=== PATIENT | male | born 1955 | race Caucasian/White ===

== ENCOUNTER → 2022-11-01 09:28 | Outpatient (BNVA) | payer MEDICARE, SELFPAY | PROVIDERS: PCP Family Medicine; Visit Provider Nurse Practitioner Family | DX: Z20.822 Contact with and (suspected) exposure to COVID-19 (principal) | CPT/HCPCS: 87426 ==

== ENCOUNTER → 2023-01-17 12:02 | Outpatient (BNVA) | payer MEDICARE, SELFPAY | PROVIDERS: PCP Family Medicine; Visit Provider Family Medicine | DX: I10 Essential (primary) hypertension (principal); E11.9 Type 2 diabetes mellitus without complications; R35.1 Nocturia; Z79.4 Long term (current) use of insulin | CPT/HCPCS: 80053; 80061; 82043; 83036; 84153; 85025 ==

== ENCOUNTER → 2023-01-27 09:20 | Outpatient (BNVA) | payer MEDICARE, SELFPAY | PROVIDERS: PCP Family Medicine; Visit Provider Family Medicine | DX: I10 Essential (primary) hypertension (principal) | CPT/HCPCS: 85025 ==

== ENCOUNTER 2023-02-06 10:10 | Outpatient (CLI) | payer MEDICARE, SELFPAY ==
[2023-02-06 11:26] LABS: Urine Total Protein 68.4 mg/dL (0-150)
[2023-02-06 11:59] LABS: Total Volume, Urine 2100 mL; Urine Total Protein 24 Hour 1436.4 mg/24hr (0-150)
[2023-02-06 12:00] LABS: Microalbumin 24 Hour Result 924 mg/24HR (0-30); Microalbumin Total Volume 2100 mL
== END 2023-02-06 10:11 | disposition home or self-care (01) ==
LOC: LAB 10:11
PROVIDERS: PCP Family Medicine; Visit Provider Family Medicine
DX: E11.29 Type 2 diabetes mellitus with other diabetic kidney complication (principal); R80.9 Proteinuria, unspecified
CPT/HCPCS: 82043; 84156

== ENCOUNTER 2023-03-28 07:47 | Outpatient (CLI) | payer MEDICARE, SELFPAY ==
--- NOTE | 2023-03-28 08:00 | US_ITS ---
WS: [id number] RENAL ULTRASOUND HISTORY: Proteinuria d/t diabetes COMPARISON: None available. TECHNIQUE: 2-D and color Doppler imaging of the kidney submitted. Right kidney: 10.9 cm x 6.1 cm x 4.3 cm. Cortex: 1.4 cm Normal echogenicity with no hydronephrosis or mass. Left kidney: 11.4 cm x 5.8 cm x 3.9 cm. Cortex: 1.6 cm Normal echogenicity with no hydronephrosis or mass. Aorta: Normal. Urinary Bladder: Normal distention. IMPRESSION: Normal renal ultrasound.
== END 2023-03-28 07:48 | disposition home or self-care (01) ==
LOC: RAD 07:47
PROVIDERS: PCP Family Medicine; Visit Provider Family Medicine
DX: E11.29 Type 2 diabetes mellitus with other diabetic kidney complication (principal); R80.9 Proteinuria, unspecified; Z12.11 Encounter for screening for malignant neoplasm of colon; Z80.0 Family history of malignant neoplasm of digestive organs
CPT/HCPCS: 76770; 99203

== ENCOUNTER → 2023-04-13 11:29 | Outpatient (BNVA) | payer MEDICARE, SELFPAY | PROVIDERS: PCP Family Medicine; Visit Provider Family Medicine | DX: E11.29 Type 2 diabetes mellitus with other diabetic kidney complication (principal); R80.9 Proteinuria, unspecified; Z79.4 Long term (current) use of insulin | CPT/HCPCS: 80053; 83036 ==

== ENCOUNTER → 2023-10-18 15:07 | Outpatient (BNVA) | payer MEDICARE, SELFPAY | PROVIDERS: PCP Family Medicine; Visit Provider Surgery | DX: Z09 Encounter for follow-up examination after completed treatment for conditions other than malignant neoplasm (principal) | CPT/HCPCS: 99212 ==

== ENCOUNTER → 2023-12-15 14:25 | Outpatient (BNVA) | payer MEDICARE, SELFPAY | PROVIDERS: PCP Family Medicine; Visit Provider Family Medicine | DX: I10 Essential (primary) hypertension (principal); R80.9 Proteinuria, unspecified; E11.29 Type 2 diabetes mellitus with other diabetic kidney complication; E78.2 Mixed hyperlipidemia; I25.10 Atherosclerotic heart disease of native coronary artery without angina pectoris; F41.1 Generalized anxiety disorder; K21.9 Gastro-esophageal reflux disease without esophagitis; E66.01 Morbid (severe) obesity due to excess calories; Z68.41 Body mass index [BMI] 40.0-44.9, adult; Z79.4 Long term (current) use of insulin | CPT/HCPCS: 80053; 82607; 83036; 84443; 85025 ==

== ENCOUNTER 2024-05-27 09:52 | Outpatient (CLI) | payer MEDICARE, SELFPAY ==
[2024-05-27 10:38] LABS: Estmated Average Glucose 160; Hemoglobin A1C 7.2 % (4.0-6.0)
[2024-05-27 10:47] LABS: Anion Gap 15.7 (5-19); Blood Urea Nitrogen 11 mg/dL (8-23); Calcium 7.7 mg/dL (8.5-10.5); Carbon Dioxide 26 mmol/L (22-29); Chloride 95 mmol/L (98-107); Glomerular Filtration Rate 60.4 mL/min (90-130); Glucose 192 mg/dL (65-115); Osmolality Calculated 281 mOsm/kg (285-295); Potassium 3.7 mmol/L (3.5-5.1); Sodium 133 mmol/L (136-145)
== END 2024-05-27 09:53 | disposition home or self-care (01) ==
LOC: LAB 09:53
PROVIDERS: PCP Family Medicine; Visit Provider Family Medicine
DX: E11.29 Type 2 diabetes mellitus with other diabetic kidney complication (principal); R80.9 Proteinuria, unspecified; Z79.4 Long term (current) use of insulin; I10 Essential (primary) hypertension; D33.3 Benign neoplasm of cranial nerves
CPT/HCPCS: 36415; 80048; 82043; 83036

== ENCOUNTER → 2024-06-14 09:44 | Outpatient (BNVA) | payer MEDICARE, SELFPAY | PROVIDERS: PCP Family Medicine; Visit Provider Family Medicine | DX: Z12.5 Encounter for screening for malignant neoplasm of prostate (principal); E11.9 Type 2 diabetes mellitus without complications; E78.2 Mixed hyperlipidemia | CPT/HCPCS: 80061; G0103 ==

== ENCOUNTER 2024-07-31 18:57 | Emergency (ER) | payer MEDICARE, SELFPAY ==
[2024-07-31] VITALS (7 sets, daily range): BP systolic 96–124; BP diastolic 50–61; PULSE 60–71; RESP 16; TEMP 36.4; O2SAT 95–100; BMI 41.6
--- NOTE | 2024-07-31 19:07 | XRR_ITS ---
PROCEDURE INFORMATION: Exam: XR Chest Exam date and time: 07/31/2024 7:22 PM Age: 69 years old Clinical indication: Other: Weakness TECHNIQUE: Imaging protocol: Radiologic exam of the chest. Views: 1 view. COMPARISON: CR XR chest 2V* [id number] 05/09/2021 7:46 PM FINDINGS: Lungs: Unremarkable. No consolidation. Pleural spaces: Unremarkable. No pleural effusion. No pneumothorax. Heart/Mediastinum: Unremarkable. No cardiomegaly. Bones/joints: Unremarkable. XR/XR chest 1V portable [id number] IMPRESSION: No acute findings.
--- NOTE | 2024-07-31 19:09 | ED_ITS ---
HPI - Weakness 2 General: Chief complaint: Weakness Stated complaint: WEAKNESS Time Seen by Provider: 07/31/24 18:59 Source: patient and EMS Mode of arrival: EMS Limitations: no limitations History of Present Illness: 69-year-old male who states that has bee n having generalized weakness over the last 2 days he states that he is in a house was extremely warm 2 days ago and felt like he got overheated he states since then he has felt dehydrated had body aches had some diarrhea and just feels generally weak. Denies any vomiting denies any fevers denies cough. 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 Mayes Erectile dysfunction KARMEN (generalized anxiety disorder) Old PA (myocardial infarction) 2007 CHF (congestive heart failure) Benign essential HTN Diabetic polyneuropathy associated with type 2 diabetes mellitus Surgical History S/P colonoscopy with polypectomy High-grade dysplastic polyp or malignancy removed by Dr. Mayes on 09/07/2023. Hx of colonoscopy 15-16 years ago - [facility] Previous back surgery x 4 History of arthroscopic knee surgery Right History of cataract extraction bilateral Family History Father Pancreatic cancer Mother Colon cancer Brother Heart disease Social History Smoking and tobacco/nicotine status: never used tobacco/nicotine Second hand smoke exposure: Yes Alcohol intake: former Substance/Drug Use: never Lives independently: Yes Household members: spouse and family Housing: House Marital status: Marital status details: ; 3 grandchildren live with them-plan to adopt Number of children: 6 Highest education level completed: Some College, No Degree service: Yes status: Discharged branch: [employer] Current occupational status: retired and disabled Previous occupational history: laborer/grade check [employer] 2 Vital Signs: Vital signs: Vital Signs Temperature 97.5 F L 07/31/24 18:58 Pulse Rate 68 07/31/24 18:58 Respiratory Rate 16 07/31/24 18:58 Blood Pressure 96/57 07/31/24 18:58 Pulse Oximetry 97 07/31/24 18:58 Oxygen Delivery Me thod Room Air 07/31/24 18:58 MDM - Weakness Medical Decision Making Patient presents here with generalized weakness some dehydration well-appearing here stable for discharge follow-up PCP return if worsening. Medical Records I reviewed the patient's medical records. Lab Data I reviewed the patient's lab results. 07/31/24 19:20 07/31/24 19:20 Radiology Impressions Chest X-Ray 07/31/24 19:07 IMPRESSION: No acute findings. Laboratory Results WBC 7.11 10^3/uL (3.29-11.43) 07/31/24 19:20 RBC 4.78 10^6/uL (3.85-5.65) 07/31/24 19:20 Hgb 12.40 g/dL (11.27-16.99) 07/31/24 19:20 Hct 38.4 % (37-53) 07/31/24 19:20 MCV 80.3 fl (82-101) L 07/31/24 19:20 MCH 25.9 pg (27-33) L 07/31/24 19:20 MCHC 32.3 g/dL (30-55) 07/31/24 19:20 RDW 14.7 % (12.1-15.1) 07/31/24 19:20 Plt Count 370 10^3/cmm (157-399) 07/31/24 19:20 MPV 9.8 fL (7.4-10.4) 07/31/24 19:20 Neut % (Auto) 65.7 % 07/31/24 19:20 Lymph % (Auto) 18.1 % 07/31/24 19:20 [place] % (Auto) 12.5 % 07/31/24 19:20 Eos % (Auto) 3.0 % 07/31/24 19:20 Baso % (Auto) 0.3 % 07/31/24 19:20 Neut # (Auto) 4.67 10^3/uL (1.8-7.7) 07/31/24 19:20 Lymph # (Auto) 1.3 10^3/uL (0.8-4.8) 07/31/24 19:20 [place] # (Auto) 0.9 10^3/uL (0.2-0.9) 07/31/24 19:20 Eos # (Auto) 0.2 10^3/uL (0.0-0.8) 07/31/24 19:20 Baso # (Auto) 0.0 10^3/uL (0.0-0.1) 07/31/24 19:20 Nucleated RBC % (auto) 0 % 07/31/24 19:20 Nucleated RBCs # 0.0 /100WBC 07/31/24 19:20 Sodium 134 mmol/L (136-145) L 07/31/24 19:20 Potassium 3.7 mmol/L (3.5-5.1) 07/31/24 19:20 Chloride 103 mmol/L (98-107) 07/31/24 19:20 Carbon Dioxide 18 mmol/L (22-29) L 07/31/24 19:20 Anion Gap 16.7 (5-19) 07/31/24 19:20 BUN 18 mg/dL (8-23) 07/31/24 19:20 Creatinine 1.5 mg/dL (0.7-1.2) H 07/31/24 19:20 GFR Calculation 46.7 mL/min (90-130) L 07/31/24 19:20 Glucose 98 mg/dL (65-115) 07/31/24 19:20 Calculated Osmolality 280 mOsm/kg (285-295) L 07/31/24 19:20 Calcium 8.2 mg/dL (8.5-10.5) L 07/31/24 19:20 Total Bilirubin 0.4 mg/dL (0.15-1.2) 07/31/24 19:20 AST 15 U/L (0-40) 07/31/24 19:20 ALT 11 U/L (0-41) 07/31/24 19:20 Alkaline Phosphatase 89 U/L (40-130) 07/31/24 19:20 Total Protein 6.8 g/dL (6.6-8.7) 07/31/24 19:20 Albumin 3.5 g/dL (3.5-5.2) 07/31/24 19:20 Globulin 3.3 g/dL (1.3-4.6) 07/31/24 19:20 All radiology interpretation(s) finalized by discharge EKG Data EKG 1: I personally reviewed and interpreted this EKG as follows: EKG interpretation date: 07/31/24 EKG interpretation time: 19:20 Interpretation: nsr hr 70no st elevation qrs 103 qtc 435 Discharge Plan Discharge Patient Disposition: Home Clinical Impression: Dehydration Condition: Stable Prescriptions: No Action aspirin [Adult Aspirin Regimen] 81 mg tablet,delayed release (DR/EC) 81 mg PO DAILY insulin aspart U-100 [Novolog FlexPen U-100 Insulin] 100 unit/mL (3 mL) insulin pen 40 unit SUBCUT TID Qty: 30 1RF Rx Instructions: up to 40 unit tid as PER SLIDING SCALE Arexvy (PF) 120 mcg/0.5 mL suspension for reconstitution 0.5 ml IM ONCE Qty: 1 0RF (DME) Dexcom G7 Senior Ui Ux Developer Misc See Rx Instructions .Route Qty: 1 0RF Rx Instructions: As directed carvedilol 12.5 mg tablet 12.5 mg PO BID Qty: 180 1RF Rx Instructions: must administer with a meal/food furosemide 40 mg tablet 20 mg PO DAILY Qty: 30 5RF Jardiance 25 mg tablet 25 mg PO QAM Qty: 30 5RF atorvastatin 20 mg tablet 20 mg PO DAILY Qty: 30 3RF lisinopril 20 mg tablet 20 mg PO DAILY Qty: 30 3RF omeprazole 20 mg capsule,delayed release(DR/EC) 20 mg PO DAILY Qty: 30 3RF paroxetine HCl 30 mg tablet 30 mg PO DAILY Qty: 30 3RF Fiasp FlexTouch U-100 Insulin 100 unit/mL (3 mL) insulin pen 15 unit SUBCUT TID Qty: 15 5RF Rx Instructions: inject 15 units SUBCUTANEOUSLY THREE TIMES DAILY (DME) pen needle, diabetic [Pen Needle] 31 gauge x 5/16 needle See Rx Instructions .Route Qty: 100 4RF Rx Instructions: As directed insulin glargine [Lantus Solostar U-100 Insulin] 100 unit/mL (3 mL) insulin pen 50 unit SUBCUT QPM Qty: 15 5RF Rx Instructions: INJECT 0.5ml (50 units) SUBCUTANEOUSLY AT BEDTIME liraglutide 0.6 mg/0.1 mL (18 mg/3 mL) pen injector See Rx Instructions SUBCUT .COMPLEX Qty: 9 2RF Rx Instructions: inject 0.6mg subcutaneously once daily x 7 days; then 1.2mg daily, not to exceed 1.8mg/day SUBCUT (DME) Dexcom G7 Sensor Device See Rx Instructions .Route Qty: 3 5RF Rx Instructions: As directed Discharge Orders: Discharge ED (Routine); Ordered 07/31/24 Ordered By: He Ugalde Referrals: Rosana Boyd MD [Primary Care Provider, [facility]] Discharge Diet: Advance as tolerated Discharge Activity: Resume usual activity Patient Instructions: Dehydration (ED) Print Language: Yemeni Coding Level of Care Code ED Data Sme for Chg Fwd Related Data Home Medications ?Medication ?Instructions ?Recorded ?Confirmed aspirin 81 mg tablet,delayed 81 mg PO DAILY 11/01/22 0 07/04/24 release (Adult Aspirin Regimen) Previous Rx's ?Medication ?Instructions ?Recorded RSVPreF3 antigen-AS01E 0.5 ml IM ONCE #1 ea 4 adjuvant(PF) 120 mcg/0.5 mL IM suspension, kit (Arexvy (PF)) blood-glucose,fiber machine tender,cont #1 ea 12/15/23 (Dexcom G7 Senior Ui Ux Developer) furosemide 40 mg tablet 20 mg (1/2 x 40 mg) PO DAILY #30 12/17/23 tabs Jardiance 25 mg tablet 25 mg PO QAM diabetes #30 ta bs 02/29/24 (empagliflozin) atorvastatin 20 mg tablet 20 mg PO DAILY #30 tabs 03/31 07/21 lisinopril 20 mg tablet 20 mg PO DAILY #30 tabs 03/31 07/21 omeprazole 20 mg capsule,delayed 20 mg PO DAILY #30 ca ps 04/23/24 release paroxetine HCl 30 mg tablet 30 mg PO DAILY #30 tabs insulin aspart 15 unit SUBCUT TID #15 mL (niacinamide)(U-100) 100 unit/mL(3 mL) subcutaneous pen (Fiasp FlexTouch U-100 Insulin) pen needle, diabetic 31 gauge x #100 ea 05/17/2407/12 (Pen Needle) carvedilol 12.5 mg tablet 12.5 mg PO BID #180 tabs insulin aspart U-100 100 unit/mL 40 unit (0.4 mL) SUBC UT TID #30 mL 06/14/24 (3 mL) subcutaneous pen (Novolog FlexPen U-100 Insulin aspart) insulin glargine 100 unit/mL (3 50 unit (0.5 mL) SUBCU T QPM #15 mL 06/18/24 mL) subcutaneous pen (Lantus Solostar U-100 Insulin) liraglutide 0.6 mg/0.1 mL (18 mg/3 See Rx Instructions SUBCUT 06/18/24 mL) subcutaneous pen injector .COMPLEX #9 mL blood-glucose sensor ([email or web address] G7 #3 ea 06/21/24 Sensor device) Allergies Allergy/AdvReac Type Severity Reaction Status Date / Time metformin Allergy Severe ADR-Chest Verified 07/04/24 12:17 Pain
--- NOTE | 2024-07-31 19:20 | ECG_ITS ---
[facility] 2024-[facility]31 Pat Name: Orlando Morejon Department: Room: Gender: Male Sports Commentator: : 1955 Requested By: He Ugalde Order Number: [id number] Reading MD: RENE BATES Measurements Intervals [place] Rate: 70 P: 55 RI: 168 QRS: -16 QRSD: 103 T: 55 QT: 415 QTc: 449 Interpretive Statements SINUS RHYTHM WARNING: DATA QUALITY MAY AFFECT INTERPRETATION No previous ECG available for comparison Electronically Signed On 07-31-2024 22:52:30 CDT by RENE BATES [email or web address]
[2024-07-31] MEDS: sodium chloride 0.9% 1,000 ML 999 ML IV ×2 (19:22→20:17)
[2024-07-31 19:44] LABS: Basophils % 0.3 %; Eosinophils # 0.2 10^3/uL (0.0-0.8); Hematocrit 38.4 % (37-53); Lymphocytes # 1.3 10^3/uL (0.8-4.8); Lymphocytes % 18.1 %; Mean Corpuscular HGB Conc 32.3 g/dL (30-55); Mean Corpuscular Hemoglobin 25.9 pg (27-33); Mean Corpuscular Volume 80.3 fl (82-101); Mean Platelet Volume 9.8 fL (7.4-10.4); Monocytes # 0.9 10^3/uL (0.2-0.9); Monocytes % 12.5 %; Neutrophils # 4.67 10^3/uL (1.8-7.7); Neutrophils % 65.7 %; Nucleated Red Blood Cells % 0 %; Platelet Count 370 10^3/cmm (157-399); Red Blood Count 4.78 10^6/uL (3.85-5.65); Red Cell Distribution Width 14.7 % (12.1-15.1); White Blood Count 7.11 10^3/uL (3.29-11.43)
[2024-07-31 19:59] LABS: Alanine Aminotransferase 11 U/L (0-41); Albumin Level 3.5 g/dL (3.5-5.2); Alkaline Phosphatase 89 U/L (40-130); Anion Gap 16.7 (5-19); Aspartate Amino Transferase 15 U/L (0-40); Blood Urea Nitrogen 18 mg/dL (8-23); Calcium 8.2 mg/dL (8.5-10.5); Carbon Dioxide 18 mmol/L (22-29); Chloride 103 mmol/L (98-107); Creatinine Clr Calc Pharmacy 61.3427; Globulin 3.3 g/dL (1.3-4.6); Glomerular Filtration Rate 46.7 mL/min (90-130); Glucose 98 mg/dL (65-115); Osmolality Calculated 280 mOsm/kg (285-295); Potassium 3.7 mmol/L (3.5-5.1); Sodium 134 mmol/L (136-145); Total Bilirubin 0.4 mg/dL (0.15-1.2); Total Protein 6.8 g/dL (6.6-8.7)
[2024-07-31] MEDS: diphenoxylate/atropine Tablet 1 TAB PO (20:17)
== END 2024-07-31 22:37 | disposition home or self-care (01) ==
PROVIDERS: Emergency Provider Emergency Medicine; PCP Family Medicine
DX: E86.0 Dehydration (principal); Z79.82 Long term (current) use of aspirin; Z79.4 Long term (current) use of insulin; I25.10 Atherosclerotic heart disease of native coronary artery without angina pectoris; E78.2 Mixed hyperlipidemia; I11.0 Hypertensive heart disease with heart failure; I50.9 Heart failure, unspecified
CPT/HCPCS: 36415; 71045; 80053; 85025; 93005; 96360; 96361; 99285; J7030; J9999

== ENCOUNTER → 2024-09-10 09:27 | Outpatient (BNVA) | payer MEDICARE, SELFPAY | PROVIDERS: PCP Family Medicine; Visit Provider Family Medicine | DX: E11.29 Type 2 diabetes mellitus with other diabetic kidney complication (principal); R80.9 Proteinuria, unspecified; Z79.4 Long term (current) use of insulin; Z12.5 Encounter for screening for malignant neoplasm of prostate; Z11.59 Encounter for screening for other viral diseases | CPT/HCPCS: 83036; 86803; G0103 ==

== ENCOUNTER → 2024-12-16 13:44 | Outpatient (BNVA) | payer MEDICARE, SELFPAY | PROVIDERS: PCP Family Medicine; Visit Provider Family Medicine | DX: E11.21 Type 2 diabetes mellitus with diabetic nephropathy (principal); F41.1 Generalized anxiety disorder; I10 Essential (primary) hypertension; I25.10 Atherosclerotic heart disease of native coronary artery without angina pectoris; Z79.4 Long term (current) use of insulin; Z12.5 Encounter for screening for malignant neoplasm of prostate | CPT/HCPCS: 83036; 84443; G0103 ==